=== PATIENT | female | born 1955 | race Caucasian/White ===

== ENCOUNTER → 2016-11-23 | Outpatient (REF) | payer OTHER | LOC: M LAB REF 16:18 | PROVIDERS: ATTEND Family Medicine | DX: R42 Dizziness and giddiness (principal); R00.2 Palpitations ==

== ENCOUNTER 2017-04-29 05:49 | Emergency (ER) | payer OTHER ==
[~2017-04-29] VITALS: Ht 154.9 cm; Wt 52.0 kg
[2017-04-29] MEDS ORDERED: ECOT81TA5 PO (05:57)
[2017-04-29] MEDS ORDERED: SERT25TA88 PO (05:57)
[2017-04-29] MEDS ORDERED: OLOP1DRO OU (05:57)
[2017-04-29] MEDS ORDERED: LOSA25TA8 PO (05:57)
[2017-04-29] MEDS ORDERED: ATOR40TA75 PO (05:57)
[2017-04-29] MEDS ORDERED: NS 1,000 ML IV ONE (06:30)
[2017-04-29 06:37] LABS: BASO # 0.1 10^3/uL (0.0-0.2); BASO % 0.4 % (0.0-1.0); EOS # 0.1 10^3/uL (0.0-0.50); EOS % 0.5 % (0.0-3.0); IMMATURE GRANULOCYTE % 0.2 % (0-0); LYMPH # 2.1 10^3/uL (1.5-4.5); LYMPH % 16.6 % (24.0-44.0); MEAN CORPUSCULAR HEMOGLOBIN 31.3 pg (27.0-33.0); MEAN CORPUSCULAR VOLUME 92.2 fl (80.0-96.0); MONO # 0.8 10^3/uL (0.0-0.8); MONO % 6.2 % (0.0-5.0); NEUTROPHILS # 9.8 10^3/uL (1.8-7.7); NEUTROPHILS % 76.1 % (36.0-66.0); PLATELET COUNT, AUTOMATED 220 10^3/uL (150-450); RED CELL DISTRIBUTION WIDTH 13.2 % (11.5-14.5); WHITE BLOOD COUNT 12.8 10^3/uL (4.0-10.0)
[2017-04-29] MEDS ORDERED: GASTROGRAFIN SOLUTION 30ML PO ONE (06:45)
[2017-04-29 06:46] LABS: ALKALINE PHOSPHATASE 90 U/L (45-117); ALT/SGPT 21 U/L (12-78); AMYLASE 42 U/L (25-115); AST/SGOT 20 U/L (15-37); BILIRUBIN,DIRECT 0.2 MG/DL (0.0-0.2); BILIRUBIN,TOTAL 1.1 MG/DL (0.2-1.0); BLOOD UREA NITROGEN 22 MG/DL (7-18); CALCIUM LEVEL 8.6 MG/DL (8.8-10.2); CREATININE FOR GFR 0.94 MG/DL (0.55-1.02); GLUCOSE, FASTING 141 MG/DL (80-110); POTASSIUM SERUM 3.4 MEQ/L (3.5-5.1); SODIUM LEVEL 138 MEQ/L (136-145)
[2017-04-29 06:58] LABS: ALBUMIN 3.8 GM/DL (3.2-5.2); ALBUMIN/GLOBULIN RATIO 1.19 (1.00-1.93)
[2017-04-29] MEDS ORDERED: GASTROGRAFIN SOLUTION 30ML (Q9963) PO ONE (07:15)
[2017-04-29 08:25] LABS: ANION GAP 11 MEQ/L (8-16); CARBON DIOXIDE LEVEL 23 MEQ/L (21-32); CHLORIDE LEVEL 104 MEQ/L (98-107)
[2017-04-29] MEDS ORDERED: ISOVUE-370 76% 100ML VIAL (Q9967) As Ordered ONE (08:34)
--- NOTE | 2017-04-29 09:41 | ECGEPIP ---
Stationary ECG Study [facility] - ED Test Date: 2017-04-29 Pat Name: MITCH YOUNG Department: Room: - Gender: F Senior [employer] Consultant: tiffany : 1955 Requested By: TENISHA METZ Order Number: [id number] Reading MD: Markus Yarbrough Measurements Intervals [place] Rate: 63 P: 77 SC: 141 QRS: 28 QRSD: 86 T: 60 QT: 419 QTc: 432 Interpretive Statements [employer] RBBB Electronically Signed On 04-29-2017 9:41:11 EDT by Markus Yarbrough
--- NOTE | 2017-04-29 09:55 | REP ---
CT ABDOMEN AND PELVIS WITH ORAL AND IV CONTRAST: TECHNIQUE: Axial contrast enhanced images from the lung bases to the pubic symphysis using 100 mL Isovue 370 intravenous contrast material with multiplanar reformations. Visualized lung bases demonstrate no infiltrate. The liver, gallbladder, spleen, adrenals, pancreas and kidneys appear unremarkable. I see no adenopathy. There is no abdominal aortic aneurysm. There is no free air. There is thickening of the sigmoid colon with diffuse diverticula in this region and the fat surrounding the sigmoid demonstrates streaky inflammatory change consistent with diverticulitis. There is also mild free fluid in the pelvis. No pelvic mass is seen. The urinary bladder is mildly distended and grossly unremarkable. IMPRESSION: Sigmoid diverticulitis. Mild free fluid in the pelvis. No free air. No abscess collection. Signed by Juve Griffin MD 04/30/2017 07:48 P
[2017-04-29] MEDS ORDERED: ONDANSETRON 4MG/2ML VIAL (J2405) IV ONE (10:15)
[2017-04-29] MEDS ORDERED: MORPHINE 4 MG/ML 1ML SYRINGE IV PRN (10:15)
[2017-04-29] MEDS ORDERED: metroNIDAZOLE 500 MG in APPROPRIATE DILUENT 1 EA IV ONE (10:15)
[2017-04-29] MEDS ORDERED: CIPROFLOXACIN 400 MG in APPROPRIATE DILUENT 1 EA IV ONE (10:15)
[2017-04-29] MEDS ORDERED: VITMTA PO (11:59)
[2017-04-29] MEDS ORDERED: CALCTAB68 PO ×2 (11:59)
[2017-04-29] MEDS ORDERED: ASPI1TAB20 PO (11:59)
[2017-04-29] MEDS ORDERED: NORCOTAB PO (14:19)
[2017-04-29] MEDS ORDERED: FLAG500T PO (14:19)
[2017-04-29] MEDS ORDERED: CIPR-249 PO (14:19)
[2017-04-29 14:33] VITALS: BP 110/60
--- NOTE | 2017-04-29 15:00 | ER ---
DATE OF CONSULTATION: 04/29/2017 PRIMARY CARE PHYSICIAN: Dr. Spike Villarreal Consultation for Dr. Markus Yarbrough. I was asked to evaluate Claudette Kaur for admission to hospitalist's service for diverticulitis. She has had abdominal pain for a few days. A CT scan evidenced the diverticulitis. White count of 12.8. No fever. On exam, she was afebrile. Her vital signs were stable. She was smiling, looked entirely well. She said her abdominal pain had resolved, and she felt able to go home. Her examination was unremarkable. Her abdomen was essentially nontender. The rest of her exam was within normal limits. My advice was for her to be discharged home. Followup with Dr. Villarreal. I discussed dietary changes with her, indications to return to the emergency room, and need to followup with Dr. Villarreal within a week. Dr. Yarbrough was going to prescribe Cipro and Flagyl upon discharge.
== END 2017-04-29 14:36 | disposition home or self-care (01) ==
LOC: M ED 05:49 → EDBD 05:49 → CANBEDREQ 14:17 → M ED 14:36
DX: K57.92 Diverticulitis of intestine, part unspecified, without perforation or abscess without bleeding (principal); R42 Dizziness and giddiness; I10 Essential (primary) hypertension; E78.4 Other hyperlipidemia
CPT/HCPCS: 74177; 80048; 80076; 81001; 82150; 83690; 85025; 87088; 87186; 93005; 96361; 96365; 96368; 99285; J0744; Q9963; Q9967

== ENCOUNTER → 2017-07-11 | Outpatient (CLI) | payer OTHER | LOC: M WHC 10:50 | DX: Z12.31 Encounter for screening mammogram for malignant neoplasm of breast (principal) ==

== ENCOUNTER → 2018-09-02 | Outpatient (CLI) | payer OTHER ==
[~2018-09-02] MED LIST: ASPI1TAB20 PO; ATOR40TA75 PO; CALCTAB68 PO; CIPR-249 PO; ECOT81TA5 PO; FLAG500T PO; LOSA25TA14 PO; NORCOTAB PO; OLOP0.1D OU; SERT25TA88 PO; VITMTA PO
--- NOTE | 2018-09-02 12:18 | REPMRS ---
Patient History The patient states she had a clinical breast exam in 09/02 No known family history of cancer. Taking estrogen for 5 years 6 months. Digital Woman Screen Mammo: September 02, 2018 - Exam #: [id number] Bilateral CC and MLO view(s) were taken. Technologist: Dia Benavides, Technologist Prior study comparison: July 11, 2017, digital woman screen mammo performed at [facility]. May 22, 2016, digital woman screen mammo performed at [facility]. FINDINGS: The breast tissue is heterogeneously dense. This may lower the sensitivity of mammography. There has been no change in the appearance of the mammogram from the prior studies. There is a moderate amount of residual fibroglandular tissue which is fairly symmetric. There is no interval development of dominant mass, architectural distortion, or clustered microcalcification typical of malignancy. Scattered lymph nodes are seen in the axillae. 3-D tomosynthesis shows no additional findings. The patient's Tyrer-Cuzick lifetime risk assessment score is 7.7 %. No significant changes when compared with prior studies. Assessment: BI-RADS/ACR category 2 mammogram. Benign Findings. Recommendation Routine screening mammogram in 1 year (for women over age 40). This mammogram was interpreted with the aid of an FDA-approved computer-aided dectection system. A. Negative x-ray reports should not delay biopsy if a dominant or clinically suspicious mass is present. B. Four to eight percent of cancers are not identified by mammography. C. Adenosis and dense breast may obscure an underlying neoplasm. Electronically Signed By: Alton Valera MD 09/02/18 [id number]
== END ==
LOC: M WHC 09:40
PROVIDERS: ATTEND Nurse Practitioner Family
DX: Z12.31 Encounter for screening mammogram for malignant neoplasm of breast (principal)

== ENCOUNTER → 2019-09-10 | Outpatient (CLI) | payer OTHER ==
[~2019-09-10] MED LIST changes: -ASPI1TAB20 PO; +ASPI325T57 PO; +HYDR-3715 PO; -NORCOTAB PO; +SERT25TA21 PO; -SERT25TA88 PO
--- NOTE | 2019-09-10 09:50 | REP ---
BILATERAL SCREENING DIGITAL MAMMOGRAM WITH 3D TOMOSYNTHESIS: There are no palpable abnormalities or other breast complaints. The the patient states she had a clinical breast examination August,. [facility] Lifetime Breast Cancer Risk Score is: 7.4% . Comparison is 03/27/2013. The breasts are heterogeneously dense, which could obscure small masses. There is no dominant mass, micro calcific cluster or architectural distortion that would indicate malignancy. There are no additional findings on 3D tomosynthesiss. There is no change from the prior study. Impression: BIRADS/ACR category 1 mammogram. Negative. Recommendation: Routine annual screening mammography. Because of the increased breast density, annual adjunctive breast MRI in addition to screening mammography is recommended. These can be performed at alternating six month intervals. This mammogram was interpreted with the aid of a FDA approved computer-aided detection system. A. Negative mammogram reports should not delay biopsy if a dominant or clinically suspicious mass is present. B. Not all breast cancers are identified by mammography or tomosynthesis. C. Adenosis and dense breasts may obscure an underlying neoplasm. Patient letter M1 dense breasts. Electronically Signed by Juve Vidal MD 09/10/2019 09:41 A
== END ==
LOC: M WHC 08:24
PROVIDERS: ATTEND Nurse Practitioner Family
DX: Z12.31 Encounter for screening mammogram for malignant neoplasm of breast (principal)

== ENCOUNTER 2019-09-24 08:20 | Day surgery (SDC) | payer OTHER ==
[~2019-09-24] VITALS: Ht 154.9 cm; Wt 55.2 kg
[~2019-09-24 08:20] MED LIST changes: +CALCCAP4 PO; +ESTR1CRE VG; +LIDOCAINE 2% INJ 100 MG/5 ML SDV (FOR ANES.) As Ordered ONE; +NITR0.4S14 SL; +NS 1,000 ML IV ONE; +REFR0.5D8 OP; +fentaNYL 100 MCG/2 ML INJECTION (J3010) As Ordered ONE; +propofoL 500 MG/50 ML VIAL As Ordered ONE
--- NOTE | 2019-09-24 10:09 | ROOR ---
Patient Name: Claudette Kaur Procedure Date: 09/24/2019 9:52 AM Date of : 1955 Age: 64 Room: [facility] Gender: Female Note Status: Finalized Procedure: Upper GI endoscopy Indications: Heartburn, Suspected esophageal reflux Providers: Romain Ibrahim Jr, MD Referring MD: Spike Villarreal MD Requesting Provider: Medicines: Propofol per Anesthesia Complications: No immediate complications. Procedure: Pre-Anesthesia Assessment: - Prior to the procedure, a History and Physical was performed, and patient medications and allergies were reviewed. The patient is competent. The risks and benefits of the procedure and the sedation options and risks were discussed with the patient. All questions were answered and informed consent was obtained. Patient identification and proposed procedure were verified by the physician and the nurse in the pre-procedure area and in the procedure room. Mental Status Examination: alert and oriented. Airway Examination: normal oropharyngeal airway and neck mobility. Respiratory Examination: clear to auscultation. CV Examination: normal. ASA Grade Assessment: II - A patient with mild systemic disease. After reviewing the risks and benefits, the patient was deemed in satisfactory condition to undergo the procedure. The anesthesia plan was to use moderate sedation / analgesia (conscious sedation). Immediately prior to administration of medications, the patient was re-assessed for adequacy to receive sedatives. The heart rate, respiratory rate, oxygen saturations, blood pressure, adequacy of pulmonary ventilation, and response to care were monitored throughout the procedure. The physical status of the patient was re-assessed after the procedure. The Endoscope was introduced through the mouth, and advanced to the second part of duodenum. The upper GI endoscopy was accomplished without difficulty. The patient tolerated the procedure well. Findings: The upper third of the esophagus, middle third of the esophagus and lower third of the esophagus were normal. The cardia, gastric fundus and gastric body were normal. Scattered moderate inflammation with hemorrhage characterized by congestion (edema), friability, granularity, linear erosions and shallow ulcerations was found in the gastric antrum and in the prepyloric region of the stomach. Biopsies were taken with a cold forceps for histology. The duodenal bulb, first portion of the duodenum and second portion of the duodenum were normal. Impression: - Normal upper third of esophagus, middle third of esophagus and lower third of esophagus. - Normal cardia, gastric fundus and gastric body. - Gastritis with hemorrhage. Biopsied. - Normal duodenal bulb, first portion of the duodenum and second portion of the duodenum. Recommendation: - Discharge patient to home (ambulatory). - Return to my office in 1 week. Romain Ibrahim MD Romain Ibrahim Jr, MD 09/24/2019 10:09:19 AM Electronically signed by Romain Ibrahim Jr, MD Number of Addenda: 0 Note Initiated On: 09/24/2019 9:52 AM Estimated Blood Loss: Estimated blood loss: none.
--- NOTE | 2019-09-24 10:27 | ROOR ---
Patient Name: Claudette Kaur Procedure Date: 09/24/2019 9:52 AM Date of : 1955 Age: 64 Room: [facility] Gender: Female Note Status: Finalized Procedure: Colonoscopy Indications: Screening for colorectal malignant neoplasm Providers: Romain Ibrahim Jr, MD Referring MD: Spike Villarreal MD Requesting Provider: Medicines: Propofol per Anesthesia Complications: No immediate complications. Procedure: Pre-Anesthesia Assessment: - Prior to the procedure, a History and Physical was performed, and patient medications and allergies were reviewed. The patient is competent. The risks and benefits of the procedure and the sedation options and risks were discussed with the patient. All questions were answered and informed consent was obtained. Patient identification and proposed procedure were verified by the physician and the nurse in the pre-procedure area and in the procedure room. Mental Status Examination: alert and oriented. Airway Examination: normal oropharyngeal airway and neck mobility. Respiratory Examination: clear to auscultation. CV Examination: normal. ASA Grade Assessment: II - A patient with mild systemic disease. After reviewing the risks and benefits, the patient was deemed in satisfactory condition to undergo the procedure. The anesthesia plan was to use moderate sedation / analgesia (conscious sedation). Immediately prior to administration of medications, the patient was re-assessed for adequacy to receive sedatives. The heart rate, respiratory rate, oxygen saturations, blood pressure, adequacy of pulmonary ventilation, and response to care were monitored throughout the procedure. The physical status of the patient was re-assessed after the procedure. The Colonoscope was introduced through the anus and advanced to the cecum, identified by appendiceal orifice and ileocecal valve. The colonoscopy was performed without difficulty. The patient tolerated the procedure well. The quality of the bowel preparation was adequate. Findings: The rectum, recto-sigmoid colon, descending colon, transverse colon, ascending colon, cecum, appendiceal orifice and ileocecal valve appeared normal. Multiple small and large-mouthed diverticula were found in the sigmoid colon. Impression: - The rectum, recto-sigmoid colon, descending colon, transverse colon, ascending colon, cecum, appendiceal orifice and ileocecal valve are normal. - Diverticulosis in the sigmoid colon. - No specimens collected. Recommendation: - Discharge patient to home (ambulatory). - Repeat colonoscopy in 10 years for screening purposes. Romain Ibrahim MD Romain Ibrahim Jr, MD 09/24/2019 10:26:48 AM Electronically signed by Romain Ibrahim Jr, MD Number of Addenda: 0 Note Initiated On: 09/24/2019 9:52 AM Estimated Blood Loss: Estimated blood loss: none.
[2019-09-24 10:45] VITALS: BP 110/56
== END 2019-09-24 11:01 | disposition home or self-care (01) ==
LOC: M OPP 08:20
PROVIDERS: ATTEND Surgery
DX: Z12.11 Encounter for screening for malignant neoplasm of colon (principal); K57.30 Diverticulosis of large intestine without perforation or abscess without bleeding; K29.71 Gastritis, unspecified, with bleeding; R12 Heartburn; Z79.82 Long term (current) use of aspirin; Z79.899 Other long term (current) drug therapy; Z95.5 Presence of coronary angioplasty implant and graft; Z88.2 Allergy status to sulfonamides; Z91.013 Allergy to seafood
CPT/HCPCS: 43239; 45378; 88305; J3010

== ENCOUNTER → 2020-09-13 | Outpatient (CLI) | payer OTHER ==
[~2020-09-13] MED LIST changes: -LIDOCAINE 2% INJ 100 MG/5 ML SDV (FOR ANES.) As Ordered ONE; -NS 1,000 ML IV ONE; -fentaNYL 100 MCG/2 ML INJECTION (J3010) As Ordered ONE; -propofoL 500 MG/50 ML VIAL As Ordered ONE
--- NOTE | 2020-09-13 10:15 | REPMRS ---
Patient History The patient states she had a clinical breast exam in 09/2020 No known family history of cancer. Took estrogen for 5 years 6 months. 3D TOMOSYNTHESIS WAS PERFORMED. The Norman Amaya lifetime risk for breast cancer is 7.1%. [place] breast density c. Digital Woman Screen Mammo: September 13, 2020 - Exam #: [id number] Bilateral CC and MLO view(s) were taken. Technologist: Dia Benavides, Technologist Prior study comparison: September 10, 2019, bilateral digital woman screen mammo performed at [facility]. September 02, 2018, bilateral digital woman screen mammo performed at [facility]. FINDINGS: The breast tissue is heterogeneously dense. This may lower the sensitivity of mammography. There has been no change in the appearance of the mammogram from the prior studies. There is a moderate amount of residual fibroglandular tissue which is fairly symmetric. There is no interval development of dominant mass, areas of architectural distortion, or clustered microcalcification typical of malignancy. Assessment: BI-RADS/ACR category 1 mammogram. Negative Mammogram. Recommendation Routine screening mammogram in 1 year (for women over age 40). This mammogram was interpreted with the aid of an FDA-approved computer-aided dectection system. Electronically Signed By: Juve Griffin MD 09/13/20 1015
== END ==
LOC: M WHC 08:38
PROVIDERS: ATTEND Nurse Practitioner Family
DX: Z12.31 Encounter for screening mammogram for malignant neoplasm of breast (principal)

== ENCOUNTER → 2021-02-09 | Outpatient (REF) | payer OTHER ==
[2021-02-09 12:43] LABS: C REACTIVE PROTEIN QUANTITATIV < 0.30 MG/DL (0.00-0.30); RHEUMATOID FACTOR QUANT < 10.0 IU/ML (<15.0)
[2021-02-10 13:07] LABS: ANTI DOUBLE STRAND-DNA AB <1 IU/mL (0-9); ANTINUCLEAR ANTIBODIES DIRECT Positive (Negative); RNP ANTIBODIES <0.2 AI (0.0-0.9); SJOGREN'S ANTI SS-A <0.2 AI (0.0-0.9); SJOGREN'S ANTI SS-B <0.2 AI (0.0-0.9); SMITH ANTIBODIES <0.2 AI (0.0-0.9)
== END ==
LOC: M LAB REF 11:23
PROVIDERS: ATTEND Family Medicine
DX: M25.50 Pain in unspecified joint (principal)

== ENCOUNTER → 2021-11-09 | Outpatient (CLI) | payer OTHER ==
[~2021-11-09] MED LIST changes: +LOSA25TA13 PO; -LOSA25TA14 PO; -OLOP0.1D OU; +OLOP5DRO16 OU
== END ==
LOC: M WHC 10:26
PROVIDERS: ATTEND Advanced Practice Midwife
DX: Z12.31 Encounter for screening mammogram for malignant neoplasm of breast (principal)

== ENCOUNTER → 2021-11-10 | Outpatient (CLI) | payer OTHER | LOC: M WHC 14:28 | PROVIDERS: ATTEND Advanced Practice Midwife | DX: Z13.820 Encounter for screening for osteoporosis (principal); M81.0 Age-related osteoporosis without current pathological fracture ==

== ENCOUNTER → 2023-03-14 | Outpatient (REF) | payer OTHER ==
[~2023-03-14] MED LIST changes: -OLOP5DRO16 OU; +OLOP5DRO17 OU
== END ==
LOC: M WUC 21:14
PROVIDERS: ATTEND Student in an Organized Health Care Education/Training Program
DX: R30.0 Dysuria (principal)

== ENCOUNTER → 2023-03-21 | Outpatient (CLI) | payer OTHER | LOC: M WHC 13:23 | PROVIDERS: ATTEND Advanced Practice Midwife | DX: Z12.31 Encounter for screening mammogram for malignant neoplasm of breast (principal) ==

== ENCOUNTER → 2024-03-27 | Outpatient (CLI) | payer MEDICARE, OTHER | LOC: M WHC 10:30 | PROVIDERS: ATTEND Advanced Practice Midwife | DX: M85.89 Other specified disorders of bone density and structure, multiple sites (principal) | CPT/HCPCS: 77063; 77067; 77080; G0101 ==

== ENCOUNTER → 2024-03-27 | Outpatient (CLI) | payer MEDICARE, OTHER | LOC: M WHC 09:38 | PROVIDERS: ATTEND Advanced Practice Midwife | DX: Z01.419 Encounter for gynecological examination (general) (routine) without abnormal findings (principal); Z12.31 Encounter for screening mammogram for malignant neoplasm of breast; R92.333 Mammographic heterogeneous density, bilateral breasts; Z12.39 Encounter for other screening for malignant neoplasm of breast; Z13.820 Encounter for screening for osteoporosis; N95.2 Postmenopausal atrophic vaginitis; Z90.710 Acquired absence of both cervix and uterus ==

== ENCOUNTER → 2024-03-27 | Outpatient (CLI) | payer MEDICARE, OTHER | LOC: M WHC 10:15 | PROVIDERS: ATTEND Advanced Practice Midwife | DX: Z12.31 Encounter for screening mammogram for malignant neoplasm of breast (principal); Z13.820 Encounter for screening for osteoporosis; Z53.9 Procedure and treatment not carried out, unspecified reason ==

== ENCOUNTER → 2025-04-01 | Outpatient (CLI) | payer MEDICARE, OTHER | LOC: M WHC 09:28 | PROVIDERS: ATTEND Advanced Practice Midwife | DX: Z12.31 Encounter for screening mammogram for malignant neoplasm of breast (principal); R92.333 Mammographic heterogeneous density, bilateral breasts ==